=== PATIENT | male | born 1960 | race African-American/Black ===

== ENCOUNTER 2018-03-07 11:00 | Emergency (ER) | payer OTHER ==
[~2018-03-07] VITALS: Ht 180.3 cm; Wt 64.4 kg
[2018-03-07] MEDS ORDERED: MICROZIDE12.5 M1 (11:39)
[2018-03-07] MEDS ORDERED: BETA BLOCKER (11:39)
[2018-03-07] MEDS ORDERED: ALBU2.5V5 NEB (13:05)
[2018-03-07] MEDS ORDERED: ALBU90OI INH (13:05)
[2018-03-07] MEDS ORDERED: (None)20 M1 PO (13:05)
== END 2018-03-07 13:12 | disposition home or self-care (01) ==
LOC: ER 11:00
DX: J45.901 Unspecified asthma with (acute) exacerbation (principal); Z88.1 Allergy status to other antibiotic agents; Z88.0 Allergy status to penicillin; I10 Essential (primary) hypertension; Z79.899 Other long term (current) drug therapy
CPT/HCPCS: 93005; 93010; 94644; 96374; 99284; J2930

== ENCOUNTER 2018-05-24 13:34 | Emergency (ER) | payer OTHER ==
[~2018-05-24] VITALS: Ht 180.3 cm; Wt 68.0 kg
[~2018-05-24 13:34] MED LIST: (None)20 M1 PO; ALBU2.5V5 NEB; ALBU90OI INH; ATOR10 PO; BETA BLOCKER; HYDCHL25 PO; Hydrochlorothia25 MG PO; MICROZIDE12.5 M1; NEBUSAL4 M1 INH; PROAIR RESPICL90 MCG INH; Proventil5 MG/1 ML INH
[2018-05-24] MEDS ORDERED: Hydrochlorothia50 MG PO (13:51)
[2018-05-24] MEDS ORDERED: ALBU90OI6 INH (13:51)
[2018-05-24] MEDS ORDERED: Albuterol2.5 MG/0.5 INH (13:51)
[2018-05-24] MEDS ORDERED: Toprol Xl25 MG PO (13:51)
== END 2018-05-24 13:59 | disposition home or self-care (01) ==
LOC: ER 13:34
DX: Z76.0 Encounter for issue of repeat prescription (principal); Z88.1 Allergy status to other antibiotic agents; Z88.8 Allergy status to other drugs, medicaments and biological substances; Z79.899 Other long term (current) drug therapy; J45.909 Unspecified asthma, uncomplicated; Z87.891 Personal history of nicotine dependence
CPT/HCPCS: 99281

== ENCOUNTER 2018-06-29 13:47 | Emergency (ER) | payer OTHER ==
[~2018-06-29] VITALS: Ht 180.3 cm; Wt 72.6 kg
[~2018-06-29 13:47] MED LIST changes: +ALBU90OI6 INH; +Albuterol2.5 MG/0.5 INH; +Hydrochlorothia50 MG PO; +Toprol Xl25 MG PO
[2018-06-29] MEDS ORDERED: ALBU90OI6 INH (14:17)
[2018-06-29] MEDS ORDERED: Albuterol2.5 MG/0.5 INH (14:17)
[2018-07-03] MEDS ORDERED: PRED20 PO (10:54)
[2018-07-03] MEDS ORDERED: ALBU90OI INH (10:54)
[2018-07-03] MEDS ORDERED: Advair Hfa 230-12 GM INH (10:54)
== END 2018-06-29 14:23 | disposition home or self-care (01) ==
LOC: ER 13:47
DX: Z76.0 Encounter for issue of repeat prescription (principal); J45.909 Unspecified asthma, uncomplicated; Z88.1 Allergy status to other antibiotic agents; Z91.048 Other nonmedicinal substance allergy status; Z88.8 Allergy status to other drugs, medicaments and biological substances; Z79.899 Other long term (current) drug therapy; Z79.51 Long term (current) use of inhaled steroids; Z87.891 Personal history of nicotine dependence
CPT/HCPCS: 99281

== ENCOUNTER 2018-07-28 19:10 | Emergency (ER) | payer OTHER ==
[~2018-07-28] VITALS: Ht 180.3 cm; Wt 72.6 kg
[~2018-07-28 19:10] MED LIST changes: +Advair Hfa 230-12 GM INH; +PRED20 PO
[2018-07-28] MEDS ORDERED: Albuterol2.5 MG/0.5 INH (19:30)
[2018-07-28] MEDS ORDERED: ALBU90OI61 INH (19:30)
[2018-07-28] MEDS ORDERED: Proventil5 MG/1 ML INH (21:00)
[2018-07-28] MEDS ORDERED: Hydrochlorothia25 MG PO (21:00)
[2018-07-28] MEDS ORDERED: IBUP800 PO (21:00)
[2018-07-28] MEDS ORDERED: ALBU90OI INH ×2 (21:00→21:05)
== END 2018-07-28 21:19 | disposition home or self-care (01) ==
LOC: ER 19:10
DX: J45.909 Unspecified asthma, uncomplicated (principal); Z76.0 Encounter for issue of repeat prescription; I10 Essential (primary) hypertension; Z87.891 Personal history of nicotine dependence; Z88.1 Allergy status to other antibiotic agents; Z88.8 Allergy status to other drugs, medicaments and biological substances; Z91.048 Other nonmedicinal substance allergy status; Z79.51 Long term (current) use of inhaled steroids
CPT/HCPCS: 94640; 99284-25